=== PATIENT | female | born 1995 | race Two or more races ===

== ENCOUNTER 2021-12-02 15:41 | Emergency (ER) | payer MEDICAID, OTHER ==
[~2021-12-02] VITALS: Ht 154.9 cm; Wt 77.1 kg
[2021-12-02 17:23] VITALS: BP 126/79
== END 2021-12-02 18:37 | disposition home or self-care (01) ==
LOC: ER 15:44
DX: M67.472 Ganglion, left ankle and foot (principal); J45.909 Unspecified asthma, uncomplicated; F17.210 Nicotine dependence, cigarettes, uncomplicated